=== PATIENT | female | born 1975 | race Caucasian/White ===

== ENCOUNTER 2016-10-01 10:23 | Outpatient (CLI) | payer OTHER ==
[~2016-10-01] VITALS: Ht 170.2 cm; Wt 130.9 kg
[2016-10-01 11:17] VITALS: BP 141/63
[2016-10-01 11:31] LABS: ASPARTATE AMINO TRANSFERASE 10 U/L (15-37); BLOOD UREA NITROGEN 7 mg/dL (7-18)
[2016-10-01] MEDS ORDERED: PREN1TAB27 PO (11:55)
[2016-10-01] MEDS ORDERED: METF10002 PO (11:55)
== END 2016-10-01 12:31 | disposition home or self-care (01) ==
LOC: LDOP 10:23
PROVIDERS: ATTEND Obstetrics & Gynecology
DX: O09.513 Supervision of elderly primigravida, third trimester (principal); O13.3 Gestational [pregnancy-induced] hypertension without significant proteinuria, third trimester; Z3A.38 38 weeks gestation of pregnancy
CPT/HCPCS: 36415; 59025; 80053; 81003; 82248; 82570; 84156; 84550; 85025; 99211; G0463

== ENCOUNTER 2016-10-12 12:54 | Inpatient (IN) | payer OTHER ==
[~2016-10-12] VITALS: Ht 172.7 cm; Wt 130.0 kg
[~2016-10-12 12:54] MED LIST: METF10002 PO; PREN1TAB27 PO
[2016-10-17] MEDS: D5%-LACTATED RINGERS 1,000 ML IV SCH ×3 (06:26→22:26)
[2016-10-17] MEDS ORDERED: OXYTOCIN 30U/ 0.9% NaCL 500ML 500 ML IV PRN (06:26)
[2016-10-17] MEDS ORDERED: OXYTOCIN 30U/ 0.9% NaCL 500ML 500 ML IV ONE (06:26)
[2016-10-17] MEDS ORDERED: AMPICILLIN 2 GM in SODIUM CHLORIDE 0.9% 100 ML IVPB STA (06:26)
[2016-10-17 06:30] VITALS: BP 140/81
[2016-10-17] MEDS ORDERED: FENTANYL PF 100 MCG/2ML IVPush PRN (06:30)
[2016-10-17] MEDS ORDERED: ONDANSETRON 2MG/ML, 2ML IVPush PRN (06:30)
[2016-10-17] MEDS ORDERED: TERBUTALINE 1 MG/ML, 1ML IVPush PRN (06:30)
[2016-10-17] MEDS ORDERED: FENTANYL PF 100 MCG/2ML IV PRN (06:30)
[2016-10-17] MEDS: LACTATED RINGERS 1,000 ML IV SCH ×3 (06:45→17:31)
[2016-10-17] MEDS ORDERED: NEWBORN KIT ONE (06:55)
[2016-10-17] MEDS ORDERED: OXYTOCIN 30U/ 0.9% NaCL 500ML 500 ML ONE (06:55)
[2016-10-17] MEDS ORDERED: LIDOCAINE 1%, 20ML ONE (06:55)
[2016-10-17] MEDS ORDERED: MISOPROSTOL 200 MCG TABLET ONE (08:20)
[2016-10-17] MEDS: AMPICILLIN 1 GM in SODIUM CHLORIDE 0.9% 50 ML IVPB SCH ×5 (11:03→23:11)
[2016-10-17] MEDS ORDERED: FENTANYL/BUPIV./NS/PF 250 ML EPIDCONT ONE (13:35)
[2016-10-17] MEDS ORDERED: FENTANYL/BUPIV./NS/PF 250 ML EPIDCONT SCH (17:23)
[2016-10-17] MEDS ORDERED: LACTATED RINGERS 1,000 ML IVBOLUS PRN (17:30)
[2016-10-18] MEDS: LACTATED RINGERS 1,000 ML IV SCH ×3 (01:18→17:23)
[2016-10-18] MEDS: AMPICILLIN 1 GM in SODIUM CHLORIDE 0.9% 50 ML IVPB SCH ×2 (02:30→06:30)
[2016-10-18] MEDS ORDERED: OXYTOCIN 30U/ 0.9% NaCL 500ML 500 ML ONE (04:24)
[2016-10-18] MEDS: OXYTOCIN 30U/ 0.9% NaCL 500ML 500 ML IV SCH ×2 (04:27→14:03)
[2016-10-18] MEDS ORDERED: IBUPROFEN 600 MG TABLET PO PRN (04:30)
[2016-10-18] MEDS ORDERED: ONDANSETRON 2MG/ML, 2ML IV PRN (04:30)
[2016-10-18] MEDS ORDERED: OXYcodone/APAP 5/325MG TABLET PO PRN (04:30)
[2016-10-18] MEDS ORDERED: ACETAMINOPHEN 325 MG TABLET PO PRN (04:30)
[2016-10-18] MEDS ORDERED: MISOPROSTOL 200 MCG TABLET PR PRN (04:30)
[2016-10-18 05:55] VITALS: BP 108/59
[2016-10-18] MEDS: D5%-LACTATED RINGERS 1,000 ML IV SCH (06:26)
[2016-10-18 07:15] VITALS: BP 100/67
[2016-10-18] MEDS: DOCUSATE 100 MG CAPSULE PO PRN ×2 (08:35→21:26)
[2016-10-18] MEDS: PRENATAL VIT/IRON/FA 1 EACH TABLET PO SCH (08:35)
[2016-10-18 12:00] VITALS: BP 116/76
[2016-10-18] MEDS: ACETAMINOPHEN 325 MG TABLET PO PRN ×3 (12:07→21:26)
[2016-10-18 15:50] VITALS: BP 117/75
[2016-10-18 19:10] VITALS: BP 135/79
[2016-10-19] MEDS: OXYTOCIN 30U/ 0.9% NaCL 500ML 500 ML IV SCH ×2 (00:03→10:03)
[2016-10-19 00:10] VITALS: BP 94/63
[2016-10-19] MEDS: LACTATED RINGERS 1,000 ML IV SCH ×2 (01:23→09:23)
[2016-10-19] MEDS: ACETAMINOPHEN 325 MG TABLET PO PRN ×2 (05:06→14:53)
[2016-10-19] MEDS: DOCUSATE 100 MG CAPSULE PO PRN (07:45)
[2016-10-19] MEDS: PRENATAL VIT/IRON/FA 1 EACH TABLET PO SCH (07:45)
[2016-10-19 07:50] VITALS: BP 115/67
[2016-10-19 20:28] VITALS: BP 118/72
[2016-10-20 08:30] VITALS: BP 136/86
[2016-10-20] MEDS: PRENATAL VIT/IRON/FA 1 EACH TABLET PO SCH (09:02)
[2016-10-20] MEDS: DOCUSATE 100 MG CAPSULE PO PRN (09:02)
== END 2016-10-20 17:15 | disposition home or self-care (01) | DRG 775 ==
LOC: LDIP 10-17 06:05 → 2NW 10-18 05:28
PROVIDERS: ADMIT Obstetrics & Gynecology; ATTEND Obstetrics & Gynecology
PROC: 10E0XZZ Delivery of Products of Conception, External Approach (ICD-10-PCS; principal; 2016-10-18)
PROC: 0KQM0ZZ Repair Perineum Muscle, Open Approach (ICD-10-PCS; 2016-10-18)
PROC: 00HU33Z Insertion of Infusion Device into Spinal Canal, Percutaneous Approach (ICD-10-PCS; 2016-10-18)
PROC: 3E0R3CZ (ICD-10-PCS; 2016-10-18)
PROC: 10907ZC Drainage of Amniotic Fluid, Therapeutic from Products of Conception, Via Natural or Artificial Opening (ICD-10-PCS; 2016-10-18)
PROC: 3E033VJ Introduction of Other Hormone into Peripheral Vein, Percutaneous Approach (ICD-10-PCS; 2016-10-18)
DX: O48.0 Post-term pregnancy (principal); O63.9 Long labor, unspecified; Z68.41 Body mass index [BMI] 40.0-44.9, adult; O99.824 Streptococcus B carrier state complicating childbirth; O36.63X0 Maternal care for excessive fetal growth, third trimester, not applicable or unspecified; O70.1 Second degree perineal laceration during delivery; O99.214 Obesity complicating childbirth; E66.9 Obesity, unspecified; O66.0 Obstructed labor due to shoulder dystocia; E28.2 Polycystic ovarian syndrome; O34.83 Maternal care for other abnormalities of pelvic organs, third trimester; O77.0 Labor and delivery complicated by meconium in amniotic fluid; Z3A.40 40 weeks gestation of pregnancy; Z37.0 Single live birth; Z79.84 Long term (current) use of oral hypoglycemic drugs; Z88.6 Allergy status to analgesic agent; Z91.040 Latex allergy status
CPT/HCPCS: 36415; 85025; 86850; 86900; J0290; J2590; J7120

== ENCOUNTER 2019-07-12 13:51 | Outpatient (CLI) | payer OTHER | END 2019-07-12 23:59 | disposition home or self-care (01) | LOC: RAD 13:51 | PROVIDERS: ATTEND Family Medicine | DX: M75.31 Calcific tendinitis of right shoulder (principal); M25.511 Pain in right shoulder ==